=== PATIENT | female | born 1990 | race Caucasian/White ===

== ENCOUNTER 2022-09-01 05:30 | Inpatient (IN) | payer BC ==
[2022-09-01] MEDS ORDERED: Lidocaine 1% (PF) 30 ML VIAL SC PRN (06:09)
[2022-09-01] MEDS ORDERED: Misoprostol 200 MCG TAB PR PRN (06:09)
[2022-09-01] MEDS ORDERED: Diphenoxylate HCl/Atropine Tablet PO PRN (06:09)
[2022-09-01] MEDS ORDERED: Ibuprofen 800 MG TAB PO PRN (06:09)
[2022-09-01] MEDS ORDERED: Butorphanol Tartrate 1 MG/ML VIAL SLOW IVP PRN (06:09)
[2022-09-01] MEDS ORDERED: HYDROcodone/Acetaminophen 5/325 mg Tablet PO PRN ×3 (06:09→15:11)
[2022-09-01] MEDS ORDERED: Acetaminophen 500 MG TAB PO PRN (06:09)
[2022-09-01] MEDS ORDERED: Carboprost 250 MCG/ML AMP IM PRN (06:09)
[2022-09-01] MEDS ORDERED: Lactated Ringer's 1,000 ML IV SCH (06:09)
[2022-09-01] MEDS ORDERED: Methylergonovine 0.2 MG/ML VIAL IM PRN (06:09)
[2022-09-01] MEDS ORDERED: hydrALAZINE 20 MG/ML VIAL SLOW IVP PRN ×2 (06:09→15:11)
[2022-09-01] MEDS ORDERED: Promethazine HCl 25 MG/ML VIAL IM PRN ×2 (06:09→15:11)
[2022-09-01] MEDS ORDERED: NS w/ Oxytocin 30 units 500 ML IV SCH ×2 (06:09)
[2022-09-01] MEDS ORDERED: Ondansetron PF 4 MG/2 ML Vial IVP PRN ×2 (06:09→15:11)
[2022-09-01 08:14] LABS: Mean Corpuscular HGB CONC 35.9 g/dL (32.0-36.0); Mean Corpuscular Hemoglobin 34.1 pg (27.0-33.0); Mean Corpuscular Volume 95.1 fl (81.6-98.3); Mean Platelet Volume 11.5 fl (7.4-10.4); Platelet Count 142 10x3/uL (150-450); RBC Distribution Width 13.2 % (11.5-14.5); White Blood Cell (WBC) Count 9.3 10x3/uL (3.5-10.5)
[2022-09-01 08:29] VITALS: BMI 24.2
[2022-09-01 08:46] LABS: Syphilis Antibody Nonreactive (Nonreactive); Syphilis Antibody Index 0.09 S/CO (<1.00 Non-Reactive)
[2022-09-01] MEDS ORDERED: Penicillin G Potassium 5 MILL.UNITS VIAL ONE (08:47)
[2022-09-01 08:48] LABS: HBSAg Index 0.19 S/CO (0-0.99); Hep B Surf Ag Non-Reactive S/CO (NonReactive)
[2022-09-01] MEDS ORDERED: Penicillin G Potassium 5 MILL.UNITS in Sodium Chloride 0.9% 100 ML IVPB SCH (09:00)
[2022-09-01] MEDS ORDERED: Penicillin G 2.5 MILL.units 50 ML IVPB SCH (09:00)
[2022-09-01 09:56] LABS: SARS-CoV-2 NAA Rapid Test Not Detected (NotDetected)
[2022-09-01] MEDS ORDERED: Milk Of Magnesia 30 ML UDCUP PO PRN (15:11)
[2022-09-01] MEDS ORDERED: Benzocaine-Menthol 82.5 ML CAN TOP PRN (15:11)
[2022-09-01] MEDS ORDERED: diphenhydrAMINE 25 MG CAP PO PRN (15:11)
[2022-09-01] MEDS ORDERED: Boostrix 0.5 ML (Tdap) VIAL (>/=7 yrs of age) IM ONE (15:11)
[2022-09-01] MEDS ORDERED: Lanolin Ointment 7 GM TUBE TOP PRN (15:11)
[2022-09-01] MEDS ORDERED: Bisacodyl 10 MG SUPP PR PRN (15:11)
[2022-09-01] MEDS ORDERED: Preparation H Ointment 28 GM TUBE PR PRN (15:11)
[2022-09-01] MEDS: Ferrous Sulfate 325 MG TAB PO SCH (17:27)
[2022-09-01] MEDS: Ibuprofen 800 MG TAB PO SCH (17:28)
[2022-09-01] MEDS: Docusate 100 MG CAP PO SCH (19:23)
[2022-09-02] MEDS: Ibuprofen 800 MG TAB PO SCH ×2 (00:11→09:02)
[2022-09-02 08:40] VITALS: BP 119/71; TEMP 97.9
[2022-09-02] MEDS ORDERED: Prenatal Vitamin 1 TAB PO SCH (09:00)
[2022-09-02] MEDS: Docusate 100 MG CAP PO SCH (09:03)
[2022-09-02] MEDS: Ferrous Sulfate 325 MG TAB PO SCH (09:03)
== END 2022-09-02 13:40 | disposition home or self-care (01) | DRG 807 ==
LOC: CSHLD 05:49 → CSHPP 15:05
PROVIDERS: ADMIT Student in an Organized Health Care Education/Training Program; ATTEND Student in an Organized Health Care Education/Training Program
PROC: 10E0XZZ Delivery of Products of Conception, External Approach (ICD-10-PCS; principal; 2022-09-01)
PROC: 0HQ9XZZ Repair Perineum Skin, External Approach (ICD-10-PCS; 2022-09-01)
DX: O42.02 Full-term premature rupture of membranes, onset of labor within 24 hours of rupture (principal); Z37.0 Single live birth; O48.0 Post-term pregnancy; Z3A.41 41 weeks gestation of pregnancy; Z20.822 Contact with and (suspected) exposure to COVID-19; F32.A Depression, unspecified; O99.344 Other mental disorders complicating childbirth; O99.824 Streptococcus B carrier state complicating childbirth; O70.0 First degree perineal laceration during delivery
CPT/HCPCS: 36415; 85027; 86780; 86850; 86900; 86901; 87340; J2001; J2405; J2540; J2590; U0002